=== PATIENT | male | born 1975 | race Two or more races ===

== ENCOUNTER 2022-07-01 18:08 | Emergency (ER) | payer OTHER ==
[2022-07-01 18:15] VITALS: BP 142/74; PULSE 108; RESP 18; TEMP 97; BMI 31.3
[2022-07-01] MEDS ORDERED: DIPHTH,PERTUSS(ACELL),TET 0.5 ML DISP.SYRIN IM ONE ×2 (18:48→18:51)
== END 2022-07-01 19:55 | disposition home or self-care (01) ==
LOC: JERFT 18:08
PROC: 3E0234Z Introduction of Serum, Toxoid and Vaccine into Muscle, Percutaneous Approach (ICD-10-PCS; principal; 2022-07-01)
PROC: 0HQ0XZZ Repair Scalp Skin, External Approach (ICD-10-PCS; 2022-07-01)
DX: S09.90XA Unspecified injury of head, initial encounter (principal); S01.01XA Laceration without foreign body of scalp, initial encounter; W10.8XXA Fall (on) (from) other stairs and steps, initial encounter
CPT/HCPCS: 12002-25; 70450-TC; 72125-TC; 90471; 90715; 99285-25

== ENCOUNTER 2022-07-10 14:07 | Emergency (ER) | payer SELFPAY ==
[2022-07-10 14:16] VITALS: BP 167/82; PULSE 56; RESP 17; TEMP 98.1; BMI 29.0
== END 2022-07-10 14:59 | disposition home or self-care (01) ==
LOC: JERFT 14:07
DX: Z48.02 Encounter for removal of sutures (principal)
CPT/HCPCS: 99281-25

== ENCOUNTER 2023-06-02 13:36 | Inpatient (IN) | payer OTHER ==
[2023-06-02] MEDS ORDERED: VANCOMYCIN 1,000 MG in DEXTROSE 5%-WATER - 250 ML IVPB ONE (14:10)
[2023-06-02] MEDS ORDERED: PIPERACILLIN/TAZOB 4.5 GM 4.5 GM in DEXTROSE 5%-WATER 100 ML IVPB ONE (14:11)
[2023-06-02] MEDS ORDERED: SODIUM CHLORIDE 0.9% 500 ML INFUS.BAG IV ONE (14:14)
[2023-06-02 14:43] LABS: VENOUS BASE EXCESS 1.9 mmol/L (-2-2); VENOUS PH 7.42 (7.310-7.410)
[2023-06-02 14:46] LABS: BASO % 3.3 % (0-2.0); EOS % 1.1 % (0-4.5); HEMATOCRIT 46.3 % (35.4-49); HEMOGLOBIN 15.6 GM/dL (11.7-16.9); LYMPH % 25.1 % (8-40); MCH 29.6 pg (25.7-33.7); MCHC 33.7 g/dl (32.0-35.9); MEAN CELL VOLUME 87.8 fl (80-96); MEAN PLT VOLUME 7.6 fl (7.5-11.1); MONO % 7.9 % (3.8-10.2); NEUT % 62.6 % (42.8-82.8); PLATELET COUNT 286 10^3/uL (134-434); RBC 5.27 M/mm3 (4.00-5.60); RDW 13.3 % (11.9-15.9); WHITE BLOOD COUNT 9.6 K/mm3 (4.0-10.0)
[2023-06-02] MEDS ORDERED: PIPERACILLIN/TAZOB 4.5 GM 4.5 GM/100 ML BAG IVPB ONE (14:59)
[2023-06-02] MEDS ORDERED: VANCOMYCIN/WATER FOR INJ (PEG) 1,000 MG/200 ML BAG IVPB ONE (14:59)
[2023-06-02 15:07] LABS: CALCIUM 8.5 mg/dL (8.5-10.1)
[2023-06-02 15:08] LABS: ALBUMIN 3.8 g/dl (3.4-5.0); BLOOD UREA NITROGEN 9.5 mg/dL (7-18)
[2023-06-02 15:11] LABS: CREATININE 0.8 mg/dL (0.55-1.3)
[2023-06-02 15:12] LABS: BILIRUBIN,TOTAL 0.4 mg/dL (0.2-1)
[2023-06-02 15:13] LABS: TOT PROT 8.4 g/dl (6.4-8.2)
[2023-06-02] MEDS ORDERED: SODIUM CHLORIDE 1,000 ML IV SCH (18:00)
[2023-06-02] MEDS ORDERED: FOLIC ACID 1 MG TABLET (FP) PO ONE (18:05)
[2023-06-02 18:43] LABS: BASO % 1.2 % (0-2.0); EOS % 0.6 % (0-4.5); HEMATOCRIT 45.7 % (35.4-49); LYMPH % 20.2 % (8-40); MCH 29.6 pg (25.7-33.7); MCHC 32.9 g/dl (32.0-35.9); MEAN CELL VOLUME 89.9 fl (80-96); MEAN PLT VOLUME 8.3 fl (7.5-11.1); MONO % 6.6 % (3.8-10.2); NEUT % 71.4 % (42.8-82.8); PLATELET COUNT 267 10^3/uL (134-434); RBC 5.08 M/mm3 (4.00-5.60); RDW 13.1 % (11.9-15.9); WHITE BLOOD COUNT 10.7 K/mm3 (4.0-10.0)
[2023-06-02] MEDS ORDERED: ENOXAPARIN NA (PORCINE) 40 MG/0.4 ML DISP.SYRIN SQ ONE (18:57)
[2023-06-02] MEDS ORDERED: THIAMINE HCL 100 MG TABLET (FP) ONE (18:57)
[2023-06-02] MEDS ORDERED: FOLIC ACID 1 MG TABLET (FP) ONE (18:57)
[2023-06-02 19:02] LABS: POTASSIUM 4.2 mmol/L (3.5-5.1)
[2023-06-02 19:04] LABS: BLOOD UREA NITROGEN 13.4 mg/dL (7-18); CALCIUM 8.4 mg/dL (8.5-10.1)
[2023-06-02] MEDS: ENOXAPARIN NA (PORCINE) 40 MG/0.4 ML DISP.SYRIN SQ SCH (19:04)
[2023-06-02] MEDS: THIAMINE HCL 100 MG TABLET (FP) PO SCH (19:05)
[2023-06-02 19:08] LABS: CREATININE 0.8 mg/dL (0.55-1.3)
[2023-06-02 19:22] LABS: LACTIC ACID 2.2 mmol/L (0.4-2.0)
[2023-06-03 01:23] VITALS: BMI 36.2
[2023-06-03] MEDS ORDERED: SODIUM CHLORIDE 1,000 ML IV SCH (08:15)
[2023-06-03] MEDS: AMPICILLIN NA/SULBACTAM NA 3 GM in SODIUM CHLORIDE 100 ML IVPB SCH ×3 (09:38→20:43)
[2023-06-03] MEDS: MULTIVITAMINS (DAILY MVI) TABLET (FP) PO SCH (09:40)
[2023-06-03] MEDS: ENOXAPARIN NA (PORCINE) 40 MG/0.4 ML DISP.SYRIN SQ SCH (09:40)
[2023-06-03] MEDS: THIAMINE HCL 100 MG TABLET (FP) PO SCH (09:40)
[2023-06-03] MEDS ORDERED: ACETAMINOPHEN 325 MG TABLET (FP) PO PRN (09:55)
[2023-06-03] MEDS: DOXYCYCLINE INJECTION 100 MG in DEXTROSE 5%-WATER 100 ML IVPB SCH ×2 (11:15→21:30)
[2023-06-03 22:06] VITALS: RESP 20
[2023-06-04] MEDS: AMPICILLIN NA/SULBACTAM NA 3 GM in SODIUM CHLORIDE 100 ML IVPB SCH ×3 (02:58→15:13)
[2023-06-04] MEDS: MULTIVITAMINS (DAILY MVI) TABLET (FP) PO SCH (09:48)
[2023-06-04] MEDS: THIAMINE HCL 100 MG TABLET (FP) PO SCH (09:48)
[2023-06-04] MEDS: ENOXAPARIN NA (PORCINE) 40 MG/0.4 ML DISP.SYRIN SQ SCH (09:48)
[2023-06-04] MEDS: DOXYCYCLINE INJECTION 100 MG in DEXTROSE 5%-WATER 100 ML IVPB SCH (10:45)
[2023-06-04 11:30] LABS: HEMATOCRIT 43.7 % (35.4-49); HEMOGLOBIN 14.8 GM/dL (11.7-16.9); MCH 29.7 pg (25.7-33.7); MCHC 33.9 g/dl (32.0-35.9); MEAN CELL VOLUME 87.6 fl (80-96); MEAN PLT VOLUME 8.1 fl (7.5-11.1); PLATELET COUNT 222 10^3/uL (134-434); RBC 4.99 M/mm3 (4.00-5.60)
[2023-06-04 11:52] LABS: POTASSIUM 4.1 mmol/L (3.5-5.1)
[2023-06-04 11:54] LABS: CALCIUM 8.7 mg/dL (8.5-10.1)
[2023-06-04 11:55] LABS: BLOOD UREA NITROGEN 11.4 mg/dL (7-18)
[2023-06-04 11:58] LABS: CREATININE 0.7 mg/dL (0.55-1.3)
[2023-06-04] MEDS ORDERED: ARTIFICIAL TEARS (POLYVINYL ALCOHOL) OPTH DROPS OU PRN (12:12)
[2023-06-04 17:11] VITALS: BP 151/83; PULSE 81; TEMP 98.8
== END 2023-06-04 18:44 | disposition home or self-care (01) | DRG 383 ==
LOC: JER 13:36 → JERBED 17:02 → J7W 22:41
PROVIDERS: ADMIT Internal Medicine; ATTEND Internal Medicine
DX: L03.115 Cellulitis of right lower limb (principal); L02.415 Cutaneous abscess of right lower limb; L97.818 Non-pressure chronic ulcer of other part of right lower leg with other specified severity; R00.0 Tachycardia, unspecified; E78.5 Hyperlipidemia, unspecified
CPT/HCPCS: 36415; 73590-TC-RT-FY; 80048; 80053; 80061; 82803; 83036; 83605; 85025; 85027; 85651; 87040; 99285-25

== ENCOUNTER 2023-06-09 11:21 | Emergency (ER) | payer OTHER ==
[2023-06-09 11:37] VITALS: BP 126/78; PULSE 71; RESP 19; TEMP 98.2; BMI 46.5
== END 2023-06-09 13:34 | disposition home or self-care (01) ==
LOC: JER 11:21 → JERFT 11:21
DX: S81.801D Unspecified open wound, right lower leg, subsequent encounter (principal); X58.XXXD Exposure to other specified factors, subsequent encounter
CPT/HCPCS: 99282-25

== ENCOUNTER 2023-06-30 12:29 | Emergency (ER) | payer OTHER ==
[2023-06-30 13:11] VITALS: BP 136/80; PULSE 77; RESP 16; TEMP 98.4; BMI 36.2
== END 2023-06-30 16:03 | disposition home or self-care (01) ==
LOC: JER 12:29
DX: S81.801A Unspecified open wound, right lower leg, initial encounter (principal)
CPT/HCPCS: 99282-25

== ENCOUNTER 2023-11-11 14:52 | Emergency (ER) | payer OTHER ==
[2023-11-11 14:59] VITALS: BP 134/82; PULSE 89; RESP 18; TEMP 98.9; BMI 34.9
[2023-11-11] MEDS ORDERED: SULFAMETHOXAZOLE/TRIMETHOPRIM 800MG/160MG D.S. TABLET PO ONE (15:22)
[2023-11-11] MEDS ORDERED: CEPHALEXIN MONOHYDRATE 500 MG CAPSULE (UD) PO ONE (15:26)
[2023-11-11] MEDS ORDERED: CEPHALEXIN MONOHYDRATE 500 MG CAPSULE (UD) ONE (15:30)
[2023-11-11] MEDS ORDERED: IBUPROFEN 600 MG TABLET (FP) PO ONE ×2 (15:31→15:32)
[2023-11-11 15:41] LABS: BASO % 0.8 % (0-2.0); EOS % 2.8 % (0-4.5); HEMATOCRIT 41.3 % (35.4-49); HEMOGLOBIN 13.6 GM/dL (11.7-16.9); LYMPH % 22.8 % (8-40); MEAN CELL VOLUME 87.9 fl (80-96); MEAN PLT VOLUME 7.7 fl (7.5-11.1); MONO % 14.9 % (3.8-10.2); NEUT % 58.7 % (42.8-82.8); PLATELET COUNT 208 10^3/uL (134-434); RDW 13.5 % (11.9-15.9); WHITE BLOOD COUNT 8.1 K/mm3 (4.0-10.0)
[2023-11-11 16:00] LABS: ALBUMIN 3.2 g/dl (3.4-5.0); BLOOD UREA NITROGEN 7.9 mg/dL (7-18); CALCIUM 8.2 mg/dL (8.5-10.1)
[2023-11-11 16:03] LABS: CREATININE 0.6 mg/dL (0.55-1.3)
[2023-11-11 16:05] LABS: BILIRUBIN,TOTAL 0.4 mg/dL (0.2-1); TOT PROT 7.6 g/dl (6.4-8.2)
== END 2023-11-11 16:37 | disposition home or self-care (01) ==
LOC: JER 14:52
DX: L03.115 Cellulitis of right lower limb (principal); I83.91 Asymptomatic varicose veins of right lower extremity
CPT/HCPCS: 36415; 73590-TC-RT-FY; 80053; 85025; 99284-25